=== PATIENT | female | born 1980 | race Hispanic/Latino ===

== ENCOUNTER 2016-07-19 15:47 | Emergency (ER) | payer OTHER ==
[2016-07-19 15:54] VITALS: BMI 24.2
--- NOTE | 2016-07-19 17:10 | OBHP ---
Datetime: 07/19/2016 16:10 IP Adm Impression: , intrauterine IP Admit Plan: Observation/Evaluation Admit Comment, IP Provider: no FM x 3h...she felt baby move earlier today. No SROM. no VB.+FM PMH Denies PSH: nose Allergies: PCN POBGYNH: no STD A; IUP at 30w decreased FM PLAN: Bpp/UA PO fluids Pelvic Type - PN: Not Done Extremities - PN: Normal Abdomen - PN: Normal Back - PN: Normal Breast - PN: Not Done Lungs - PN: Normal Heart - PN: Normal Thyroid - PN: Normal Neurologic - PN: Normal HEENT - PN: Normal General - PN: Normal FHR - Baseline A Provider: 130 Comments, ACOG Physical Exam: ROS: Geneeral no weakness; no fatigue HEENT: No ABBOTT; no visual dist Resp: No SOB; no Cough CV: NO CP; no palpitations GI: No N/V/D : No F/U/D MS: NO joint pain IP Hx Assessment: The History has been Reviewed and is Current IP Chief Complaint: Decreased movement NICHD Variability Prov Fetus A: Moderate 6-25bpm NICHD Accel Fetus A IP Provider: 15X15 FHR Category Provider Fetus A: Category I NICHD Decel Fetus A IP Provider: None Genitourinary Exam: Normal DTRs - PN: Not Done
--- NOTE | 2016-07-19 17:12 | OBDCSUM ---
Datetime: 07/19/2016 17:04 Discharged to, Provider: Home Follow up at, Provider: DR AWAN Disch Instr Activity: Normal activity Disch Instr Diet: Regular Discharge Time: 07/19/2016 17:10 Follow up in weeks, Provider: in 2 weeks Disch Referrals: None Discharge Diagnosis Prov Other: decreased FM : pt felt +FM
--- NOTE | 2016-07-19 17:12 | OBHP ---
Datetime: 07/19/2016 17:10 Admit Comment, IP Provider: BPP 8/8 +FM acc to pt Discharge home/ follow up
[2016-07-19 17:42] LABS: RBC URINE 1 /hpf (0-3); URINE BACTERIA RARE (<OCC); URINE BILIRUBIN NEGATIVE (NEGATIVE); URINE BLOOD NEGATIVE (NEGATIVE); URINE COLOR STRAW (YELLOW); URINE GLUCOSE (UA) NEG (Normal); URINE KETONE NEGATIVE (NEGATIVE); URINE LEUKOCYTE ESTERASE NEG Leu/uL (Negative); URINE PROTEIN NEGATIVE (NEGATIVE); URINE UROBILINOGEN 0.2-1.0 mg/dL (0.2-1.0); WBC URINE < 1 /hpf (0-5)
--- NOTE | 2016-07-20 11:09 | US ---
PROCEDURE: Obstetrical ultrasound limited/biophysical profile HISTORY: decreased movement COMPARISON: None TECHNIQUE: Standard protocol for this study/examination. FINDINGS: FINDINGS: Biophysical profile score 8/8 Based on the followin. breathing movements: 2/2 2. Gross body movement: 2/2 3. tone: 2/2 4. Qualitative amniotic fluid index: 2/2 Breech presentation. Anterior and posterior Placenta. No evidence of abruption or previa Gestational age derived from LMP 29 weeks 2 days. Gestational age derived from the following biometric parameters thirty weeks 5 days . Biparietal diameter 8.0 cm Head yawhtujooyfti26.9 cm Abdominal circumference 25.0 cm Femur length 5.9 cm Estimated weight 1499 g Calculated cardiac rate 141 beats per min. Closed cervix measuring 5.0 cm IMPRESSION: Biophysical profile score 8/8. Thirty weeks 2 days live intrauterine gestation. BETTY based on LMP: 10/02/2016. BETTY based on biometry: 09/22/2016.
== END 2016-07-19 17:10 | disposition home or self-care (01) ==
LOC: H.EROB2 15:47
DX: O47.03 False labor before 37 completed weeks of gestation, third trimester (principal); Z3A.30 30 weeks gestation of pregnancy

== ENCOUNTER 2016-09-25 07:46 | Inpatient (IN) | payer OTHER ==
[2016-09-25 07:59] VITALS: BMI 26.3
[2016-09-25] MEDS: Lactated Ringer's 1,000 ML IV SCH ×2 (08:00→09:00)
[2016-09-25 08:24] LABS: HEMATOCRIT 36.6 % (34.0-47.0); MEAN CELL VOLUME 87.3 fl (81.0-99.0); MEAN CORPUSCULAR HEMOGLOBIN 30.4 pg (27.0-31.0); MEAN CORPUSCULAR HGB CONC 34.8 g/dL (33.0-37.0); RED CELL DISTRIBUTION WIDTH 14.6 % (11.5-14.5); WHITE BLOOD COUNT 10.6 K/uL (4.8-10.8)
[2016-09-25] MEDS ORDERED: Oxytocin 20 units in LR 2,000 ML IV ONE (08:47)
[2016-09-25] MEDS ORDERED: Oxytocin 30 units/LR 500ML 30 U/500 ML BAG IV ONE ×2 (08:47→09:32)
[2016-09-25] MEDS ORDERED: ePHEDrine 50 mg/ml Inj ONE (08:55)
[2016-09-25] MEDS ORDERED: Sodium Chloride 0.9% 10 ML IV ONE (08:56)
--- NOTE | 2016-09-25 08:57 | OBHP ---
Datetime: 09/25/2016 08:00 IP Adm Impression: Term, intrauterine ; No Active Labor; Ruptured Membranes IP Admit Plan: Admit to unit; Initiate Section protocol Admit Comment, IP Provider: 36yo IUP at 39+w breech had SROM 1h ago. 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 -Informed consent obtained Pelvic Type - PN: Adequate Extremities - PN: Normal Abdomen - PN: Normal Back - PN: Normal Breast - PN: Not Done Lungs - PN: Normal Heart - PN: Normal Thyroid - PN: Normal Neurologic - PN: Normal HEENT - PN: Normal General - PN: Normal Presentation-Admit: Breech FHR - Baseline A Provider: 120 Amniotic Fluid Color, Provider: 120 Membranes, Provider: Ruptured Comments, ACOG Physical Exam: ROS: General: no weakness; no fatigue HEENT: no ABBOTT; no visual dist CV: no palpitations; no no CP GI: no N/V no diarhea No epigastric pain; non radiating : no F/U/D MS: No joint pain Pool Provider: Positive IP Hx Assessment: The History has been Reviewed and is Current EGA AdmitDate IP: 39.5 IP Chief Complaint: Uterine contractions; Suspected ruptured membranes NICHD Variability Prov Fetus A: Marked >25bpm NICHD Accel Fetus A IP Provider: 15X15 FHR Category Provider Fetus A: Category I NICHD Decel Fetus A IP Provider: None Dilatation, Provider: 1 Effacement, Provider: 0 Genitourinary Exam: Normal DTRs - PN: Normal
[2016-09-25] MEDS ORDERED: Clindamycin 600 MG in Sodium Chloride 0.9% 100 ML IVPB ONE (09:00)
[2016-09-25] MEDS ORDERED: Phenylephrine 10 mg/ml Inj ONE (09:20)
[2016-09-25] MEDS ORDERED: Oxycodone/Acetaminophen 5/325 mg Tab PO PRN ×3 (10:11→15:54)
--- NOTE | 2016-09-25 10:24 | OBDS ---
DELIVERY PERSONNEL Delivery Doctor: Adolfo Rodríguez DO Mannequin Mold Maker: Kendra/Amy Anesthesiologist: Adeline Almaraz MD MATERNAL INFORMATION Delivery Anesthesia: Spinal Estimated Blood Loss (ml): 800 Placenta Cultured: No Maternal Complications: None Provider Comments: Pre Op Dx: IUP at 39+w; breech in labor Post Op Dx: same Procedure: LTCS via Pfannenstiel incision Surgeon: Dr Marcos Valero Anesth: Dr Almaraz Anesth: spinal Findings: -Live male james from [facility] pres -clear AF - 9,9 -Placenta delivered spontaneously -Ovaries and tubes WNL EBL 800cc She remained stable -all equipment sponges and needles accounted for LABOR SUMMARY EDC: 09/27/2016 00:00 No. Babies in Womb: 1 Attempted: No Labor Anesthesia: None LABOR INFORMATION Reason for Induction: Not Applicable Onset of Labor: 09/25/2016 07:00 Oxytocin: N/A Group B Beta Strep: Positive Antibiotics # of Doses: Clindamycin 600mg @ 0823 Antibiotics Time of Last Dose: [id number] @ 0823 Steroids Given: None Reason Steroids Not Administered: Not Applicable MEMBRANES Membranes Rupture Method: Spontaneous Rupture of Membranes: 09/25/2016 07:00 Length of Rupture (hrs): 2.53 Amniotic Fluid Color: Clear Amniotic Fluid Amount: None Amniotic Fluid Odor: Normal STAGES OF LABOR Stage 3 hrs: 0 Stage 3 min: 0 Total Time in Labor hrs: 2 Total Time in Labor min: 32 CSECTION DELIVERY Primary Indication: Breech Presentation CSection Urgency: Non Elective CSection Incidence: Primary Labor: N/A CSection Incision: Lower Uterine Transverse Uterine Closure: Double-layer closure BABY A INFORMATION Delivery Date/Time: 09/25/2016 09:32 Method of Delivery: Born in Route : No : N/A Forceps: N/A Vacuum Extraction: N/A Shoulder Dystocia : No SHOULDER DYSTOCIA BABY A Delivery Date/Time: 09/25/2016 09:32 PRESENTATION/POSITION BABY A Presentation: Breech Cephalic Presentation: N/A Breech Presentation: Sumeet PLACENTA INFORMATION BABY A Placenta Delivery Time : 09/25/2016 09:32 Placenta Method of Delivery: Spontaneous Placenta Status: Delivered SCORES BABY A Heart Rate 1 min: >100 bpm Resp Effort 1 min: Good Cry Reflex Irritability 1 min: Cough or Sneeze or Pulls Away Muscle Tone 1 min: Active Motion Color 1 min: Body [place], Extremities Blue Resuscitation Effort 1 min: Tactile Stimulation SCORE 1 MIN: 9 Heart Rate 5 min: >100 bpm Resp Effort 5 min: Good Cry Reflex Irritability 5 min: Cough or Sneeze or Pulls Away Muscle Tone 5 min: Active Motion Color 5 min: Body [place], Extremities Blue Resuscitation Effort 5 min: N/A SCORE 5 MIN: 9 INFORMATION BABY A Gestational Age at Delivery: 39.5 Gestational Status: Term Infant Outcome : Liveborn Infant Condition : Stable Sex: Male IDENTIFICATION/MEDS BABY A ID Band Number: [id number] ID Band Location: Left Leg; Left Arm Vitamin K Given : Not Given Erythromycin Given: Not Given WEIGHT/LENGTH BABY A Infant Birthweight (gms): 2960 Weight (lb): 6 Infant Weight (oz): 8 Length Inches: 20.00 Infant Length cms: 50.8 CORD INFORMATION BABY A No. Cord Vessels: 3 Nuchal Cord : N/A Nuchal Cord Other: n/a True Knot: n/a Cord pH Baby Arterial: n/a Infant Cord pH Baby Venous: n/a Cord Blood Taken: Yes Banking/Donate Info: n/a Infant Suction: Mouth ASSESSMENT BABY A Infant Complications: None Physical Findings at Delivery: Other Physical Findings Other: hypospadia Infant Respirations: Appears Normal [employer] Factory Worker/ALS Called : No Infant Care By: Sonia/Alysha Transferred To: [facility]
[2016-09-25] MEDS ORDERED: DiphenhydrAMINE 50 mg/ml Inj IVP PRN ×2 (10:31→15:54)
[2016-09-25 10:35] VITALS: BP 115/67; PULSE 63; RESP 18; TEMP 97.4; O2SAT 100
[2016-09-25] MEDS ORDERED: Lactated Ringer's 1,000 ML IV SCH (17:45)
[2016-09-25] MEDS: Oxycodone/Acetaminophen 5/325 mg Tab PO PRN (21:37)
[2016-09-26] MEDS: Oxycodone/Acetaminophen 5/325 mg Tab PO PRN ×4 (04:10→20:04)
[2016-09-26 06:45] LABS: BASO % 0.2 % (0.0-2.0); EOS # 0.1 K/uL (0.0-0.7); EOS % 0.4 % (0.0-4.0); HEMATOCRIT 30.6 % (34.0-47.0); LYMPH % 8.2 % (20.0-40.0); MEAN CELL VOLUME 88.2 fl (81.0-99.0); MEAN CORPUSCULAR HEMOGLOBIN 30.1 pg (27.0-31.0); MEAN CORPUSCULAR HGB CONC 34.1 g/dL (33.0-37.0); MONO # 0.5 K/uL (0.0-0.8); NEUT # 10.9 K/uL (1.8-7.0); NEUT % 87.2 % (50.0-75.0); PLATELET COUNT 188 K/uL (130-400); RED CELL DISTRIBUTION WIDTH 14.7 % (11.5-14.5); WHITE BLOOD COUNT 12.6 K/uL (4.8-10.8)
[2016-09-26] MEDS ORDERED: Enoxaparin 30 mg Syringe SC SCH ×2 (09:00)
[2016-09-26] MEDS ORDERED: Prenatal Multivit/Folic Acid/Iron Tab PO SCH (09:00)
[2016-09-26 09:13] LABS: LARGE PLATELETS PRESENT; NEUTROPHIL 81 % (42-75); TOTAL CELLS COUNTED 100
[2016-09-26] MEDS: Prenatal Multivit/Folic Acid/Iron Tab PO SCH (09:25)
--- NOTE | 2016-09-26 12:55 | OBPPN ---
Datetime: 09/26/2016 12:51 PP Pain Prov: Within normal limits PP Nausea Prov: Denies PP Flatus Prov: Yes PP Breasts Prov: Normal PP Heart Prov: Normal PP Lungs Prov: Normal PP Abdomen/Uterus Prov: Normal PP Lochia Prov: Normal PP Vulva/Perineum Prov: Normal PP CVA Tenderness Prov: Normal PP Extremities Prov: Normal PP Comments Phys Exam Prov: fundus firm under umbilicus incision clean/dry/intact PP Impression Prov: Normal progression PP Plan Prov: Continue present management PP Progress Note Prov: Patient denies Cp, no SOB, no N/V, tolerating PO diet, ambulating/voiding wel l, mild lochia, abdominal pain tolerable with meds, +flatus, A/P POD #1 1. reg diet 2. Percocet/Motrin prn pain 3. Encourage ambulation/ 4. Continue postop orders IP PP Procedures: None Vital Signs Provider PP: Reviewed; Within Normal Limits
[2016-09-27] MEDS: Oxycodone/Acetaminophen 5/325 mg Tab PO PRN ×4 (01:13→23:45)
[2016-09-27] MEDS: Prenatal Multivit/Folic Acid/Iron Tab PO SCH (08:52)
--- NOTE | 2016-09-27 09:57 | OBPPN ---
Datetime: 09/27/2016 09:16 PP Pain Prov: Within normal limits PP Nausea Prov: Denies PP Flatus Prov: Yes PP BM Prov: No PP Breasts Prov: Normal PP Heart Prov: Normal PP Lungs Prov: Normal PP Abdomen/Uterus Prov: Normal PP Lochia Prov: Normal PP Vulva/Perineum Prov: Normal PP CVA Tenderness Prov: Normal PP Extremities Prov: Normal PP C/S Incision Prov: Normal PP Progress Prov: Normal PP Impression Prov: Normal progression PP Plan Prov: Continue present management PP Progress Note Prov: She feels fine A: S/P day 2 - breech in labor PLAN: anticiapte discharge in AM Dulcolax Vital Signs Provider PP: Reviewed; Within Normal Limits
--- NOTE | 2016-09-27 14:24 | OBDS ---
DELIVERY PERSONNEL Delivery Doctor: Adolfo Rodríguez DO Hose Inspector: Kendra/Amy Anesthesiologist: Adeline Almaraz MD MATERNAL INFORMATION Delivery Anesthesia: Spinal Medications in Delivery: Pitocin 30 units in 500 ml lr Estimated Blood Loss (ml): 800 Placenta Cultured: No Maternal Complications: None Provider Comments: Pre Op Dx: IUP at 39+w; breech in labor Post Op Dx: same Procedure: LTCS via Pfannenstiel incision Surgeon: Dr Marcos Valero Anesth: Dr Almaraz Anesth: spinal Findings: -Live male infant [facility]eliliana from [facility] pres -clear AF - 9,9 -Placenta delivered spontaneously -Ovaries and tubes WNL EBL 800cc She remained stable -all equipment sponges and needles accounted for Addendum: also Stem cell collection obtained LABOR SUMMARY EDC: 09/27/2016 00:00 No. Babies in Womb: 1 Attempted: No Labor Anesthesia: None LABOR INFORMATION Reason for Induction: Not Applicable Onset of Labor: 09/25/2016 07:00 Oxytocin: N/A Group B Beta Strep: Positive Antibiotics # of Doses: Clindamycin 600mg @ 0823 Antibiotics Time of Last Dose: [id number] @ 0823 Steroids Given: None Reason Steroids Not Administered: Not Applicable MEMBRANES Membranes Rupture Method: Spontaneous Rupture of Membranes: 09/25/2016 07:00 Length of Rupture (hrs): 2.53 Amniotic Fluid Color: Clear Amniotic Fluid Amount: None Amniotic Fluid Odor: Normal STAGES OF LABOR Stage 3 hrs: 0 Stage 3 min: 0 Total Time in Labor hrs: 2 Total Time in Labor min: 32 CSECTION DELIVERY Primary Indication: Breech Presentation CSection Urgency: Non Elective CSection Incidence: Primary Labor: N/A CSection Incision: Lower Uterine Transverse Uterine Closure: Double-layer closure BABY A INFORMATION Delivery Date/Time: 09/25/2016 09:32 Method of Delivery: Born in Route : No : N/A Forceps: N/A Vacuum Extraction: N/A Shoulder Dystocia : No SHOULDER DYSTOCIA BABY A Infant Delivery Date/Time: 09/25/2016 09:32 PRESENTATION/POSITION BABY A Presentation: Breech Cephalic Presentation: N/A Breech Presentation: Sumeet PLACENTA INFORMATION BABY A Placenta Delivery Time : 09/25/2016 09:32 Placenta Method of Delivery: Spontaneous Placenta Status: Delivered SCORES BABY A Heart Rate 1 min: >100 bpm Resp Effort 1 min: Good Cry Reflex Irritability 1 min: Cough or Sneeze or Pulls Away Muscle Tone 1 min: Active Motion Color 1 min: Body [place], Extremities Blue Resuscitation Effort 1 min: Tactile Stimulation SCORE 1 MIN: 9 Heart Rate 5 min: >100 bpm Resp Effort 5 min: Good Cry Reflex Irritability 5 min: Cough or Sneeze or Pulls Away Muscle Tone 5 min: Active Motion Color 5 min: Body [place], Extremities Blue Resuscitation Effort 5 min: N/A SCORE 5 MIN: 9 INFORMATION BABY A Gestational Age at Delivery: 39.5 Gestational Status: Term Infant Outcome : Liveborn Infant Condition : Stable Sex: Male IDENTIFICATION/MEDS BABY A ID Band Number: [id number] ID Band Location: Left Leg; Left Arm Vitamin K Given : Not Given Erythromycin Given: Not Given WEIGHT/LENGTH BABY A Infant Birthweight (gms): 2960 Infant Weight (lb): 6 Infant Weight (oz): 8 Infant Length Inches: 20.00 Length cms: 50.8 CORD INFORMATION BABY A No. Cord Vessels: 3 Nuchal Cord : N/A Nuchal Cord Other: n/a True Knot: n/a Infant Cord pH Baby Arterial: n/a Infant Cord pH Baby Venous: n/a Cord Blood Taken: Yes Banking/Donate Info: n/a Infant Suction: Mouth ASSESSMENT BABY A Infant Complications: None Physical Findings at Delivery: Other Physical Findings Other: hypospadia Respirations: Appears Normal Manager Msw/ALS Called : No Care By: Sonia/Alysha Transferred To: [facility]
--- NOTE | 2016-09-28 08:11 | OBPPN ---
Datetime: 09/28/2016 08:07 PP Pain Prov: Within normal limits PP Nausea Prov: Denies PP Flatus Prov: Yes PP BM Prov: Yes PP Breasts Prov: Normal PP Heart Prov: Normal PP Lungs Prov: Normal PP Abdomen/Uterus Prov: Normal PP Lochia Prov: Normal PP Vulva/Perineum Prov: Normal PP CVA Tenderness Prov: Normal PP Extremities Prov: Normal PP C/S Incision Prov: Normal PP Progress Prov: Normal PP Impression Prov: Normal progression PP Plan Prov: Discharge PP Progress Note Prov: She feeel fine A: S/P C-sectoin day 3 discharge home and follow up in 1-2w Vital Signs Provider PP: Within Normal Limits
--- NOTE | 2016-09-28 08:11 | OBDCSUM ---
Datetime: 09/28/2016 08:08 Discharged to, Provider: Home Follow up at, Provider: Moon Disch Instr Activity: Normal activity Disch Instr Diet: Regular Discharge Instructions, Provider: Routine instructions given Discharge Diagnosis, Provider: Term Delivered Follow up in weeks, Provider: 1-2w Disch Referrals: None Contraception discussed, Prov: Yes Disch Activity Restrictions: No lifting; No sexual activity; Nothing in vagina - [place], tampon s, douche Discharge Diagnosis Prov Other: S/P c-seciotn for breech in labor
[2016-09-28] MEDS: Prenatal Multivit/Folic Acid/Iron Tab PO SCH (08:19)
--- NOTE | 2016-09-28 15:45 | OP ---
PROCEDURE DATE: 09/25/2016 PREOPERATIVE DIAGNOSES: Intrauterine at 39 plus weeks gestation, Breech presentation, and early labor. POSTOPERATIVE DIAGNOSES: Intrauterine at 39 plus weeks gestation, Breech presentation, and early labor. PROCEDURE: Primary low transverse section via Pfannenstiel incision and stem-cell cord blood collection. SURGEON: Augusto Rodríguez DO AIR BRAKE WORKER: Hoang Booth MD (Dr. Hoang Booth is a board certified BUSINESS PROCESS ENGINEER physician who to be available to assist on this case, his presence was vital and necessary during the procedure. There were no residents available and he was present from skin incision to delivery of the to the closure of the skin). TYPE OF ANESTHESIA: Spinal. ANESTHESIA ADMINISTERED BY: Gillian Almaraz MD OPERATIVE FINDINGS: Live male delivered from amarjit Breech presentation, clear amniotic fluid was noted, placenta was delivered and intact spontaneously. scores 9 and 9 and given 1 and 5 minutes respectively. Ovaries and tubes appeared to be within normal limits. ESTIMATED BLOOD LOSS: 800 mL She remained hemodynamically stable and all equipments, sponge, and needle accounted for. DESCRIPTION OF PROCEDURE: Lida was brought to the operating room. She was given spinal anesthesia by Dr. Almaraz. She was placed in supine position. Compression boots are placed on both lower extremities and Yarbrough catheter was placed and noted to be draining clear urine. She was then draped and prepped in usual sterile manner. Once adequate anesthesia was obtained, Pfannenstiel incision was made using scalpel. This incision was then taken down to underlying fascia using electrocautery. Fascia was nicked to the midline and then extended bilaterally using electrocautery. Inferior aspect of the fascia was grasped using 2 Jhoana clamps and tented up and rectus muscle was both bluntly and sharply dissected using electrocautery, same was done with the superior aspect of the fascia. Superiorly in midline, rectus muscle was bluntly , peritoneum was identified, tented up and this was incised using Metzenbaum scissors. The incision was then extended superiorly and inferiorly with direct visualization of bladder and intestines. Bladder blade was then inserted, bladder flap was created, this was done by incising peritoneum on the uterus above the bladder line using Metzenbaum scissors and extending it bilaterally using same scissors. A bladder flap was created digitally. Bladder blade was then inserted behind the bladder flap. A low-transverse incision was made using scalpel. Upon entering the uterus, clear amniotic fluid was noted. Incision was then extended bilaterally using Band-Aid scissors. Upon palpation, the patient's buttocks were noted to be right by the of the uterus, this was grabbed and the was then delivered from Breech presentation. Once the head was delivered was bulb suctioned nasopharyngeally and the was crying spontaneously. Cord was clamped and cut, infant was handed to the benefit specialist in attendance. scores 9 and 9 given 1 and 5 minutes respectively. Stem-cell cord collection was done, placenta was delivered and intact spontaneously. Uterus was then exteriorized, clear of debris and clots, good contracted uterus noted, and 0 Vicryl suture was used to close the first layer of the uterus in interlocking fashion. Second layer of the uterus was closed using 0 Vicryl suture imbricating the first layer. Good hemostasis assured. Posterior cul-de-sac was noted to be clear of debris and clot. Irrigation was performed. Uterus was placed back into peritoneal cavity. Incision line was noted to have good hemostasis, 0 Vicryl suture was used to approximate the peritoneum in running fashion. Rectus muscle was noted to have good hemostasis, 0 Vicryl suture was used to approximate the fascial layer in running fashion. Irrigation was performed, hemostasis was assured using electrocautery and subcuticular layer. After 2-0 plain suture was used to approximate the subcuticular layer, 3-0 Vicryl suture was used to approximate the skin. Dermabond, Steri-Strips, and pressure bandage was applied. She was brought to the recovery room in stable condition. All equipments, sponges, and needles accounted for. Augusto Rodríguez DO
== END 2016-09-28 12:30 | disposition home or self-care (01) | DRG 766 ==
LOC: H.EROB2 07:46 → H.L&D 08:10 → H.OB/GYN 15:30
PROVIDERS: ADMIT Obstetrics & Gynecology; ATTEND Obstetrics & Gynecology
PROC: 10D00Z1 Extraction of Products of Conception, Low, Open Approach (ICD-10-PCS; principal; 2016-09-25)
PROC: 4A1HXCZ Monitoring of Products of Conception, Cardiac Rate, External Approach (ICD-10-PCS; 2016-09-25)
DX: O32.1XX0 Maternal care for breech presentation, not applicable or unspecified (principal); Z37.0 Single live birth; Z3A.39 39 weeks gestation of pregnancy